=== PATIENT | male | born 1965 | race Caucasian/White ===

== ENCOUNTER 2019-02-17 06:30 | Inpatient (IN) | payer SELFPAY ==
[~2019-02-17] VITALS: Ht 170.2 cm; Wt 75.0 kg
--- OUTSIDE RECORDS SUMMARY | 2019-02-17 06:36 | XMS REPORT | Continuity of Care Document ---
Author Author [facility]. Organization [facility]. Address [address] [place] [address] Phone Unavailable Care Team Providers Care Youth Program Director Name Role Phone Patient States, No PCP Unavailable Unavailable Insurance Providers Payer Name Policy Number Subscriber Name Relationship Self-Pay Self-Pay [employer] Self Advance Directives Directive Response Recorded Date/Time Advance Directives: No 01/05/17 2:25pm Chief Complaint and Reason for Visit Reason for Visit Problems Active Medical Problems Problem Onset Date Recorded Date Status Renal colic Unknown 01/05/17 Active Medications No known medications. Social History Query Response Start Date Stop Date Smoking status: Current every day smoker Hospital Discharge Instructions No hospital discharge instructions. Plan of Care Discharge Date 01/05/17 Disposition 01-HOME, SELF-CARE,ASST LIVING Condition at Discharge Stable Instructions/Education Provided Renal Colic Prescriptions See Medications Section Referrals Luther Lanier - Additional Instructions/Education REST AND PUSH FLUIDS. F/U WITH DR LANIER OR WITH YOUR DOCTOR THIS WEEK. Some of your test results may not be complete prior to your leaving the Emergency Department. The Emergency Department is not authorized to give test results over the phone. Please contact the doctor's office listed on this form for your final results. Follow up with your primary care physician or return to the Emergency Department for worsening or worrisome symptoms. * Emergency Department phone number: [phone] MEDICAL RECORD If you need copies of your X-rays, call [phone]. If you need copies of your medical record, including lab results, a signed authorization for release of records will be required. A telephone call for release of Health Information is not allowed. BILLING Billing can sometimes be confusing and frustrating. To help avoid confusion in the future, please take a moment to acquaint yourself with the billing parties for services. [employer] [facility] [phone] X-rays [facility] Patients will receive bills for services from the appropriate provider. If you have any questions about your [facility] bill, our staff will be happy to assist you. Please call [phone] and ask for the billing department. THANK YOU for choosing [facility] as your emergency care provider. Care Plan and Goals ~~Discharge Care Plan~~ Problem: Blood in urine Goal: Decreased pain, frequency, and bloody urination. Instructions: Drink 6-8 glasses of water or noncarbonated beverages, including cranberry juice, per day. Take medication(s) as prescribed. Follow discharge instructions. Functional Status No functional status results. Allergies, Adverse Reactions, Alerts Allergen Type Severity Reaction Status Last Updated soap Allergy Unknown Active 01/05/17 povidone-iodine Allergy Unknown Active 01/05/17 ketorolac Allergy Unknown Active 01/05/17 Immunizations No Known History of Immunizations. Vital Signs Vital Reading Collection Date/Time Result Blood Pressure 01/05/17 2:25pm 122/78 Blood Pressure Source 01/05/17 2:25pm Sitting Temperature 01/05/17 2:25pm 97.9 F Temperature Source 01/05/17 2:25pm Oral Respiratory Rate 01/05/17 2:25pm 24 Pulse Rate 01/05/17 2:25pm 122 Pulse Location 01/05/17 2:25pm Pulse Oximetry Bedside Pulse Oximetry 01/05/17 2:25pm 95 Height 01/05/17 2:25pm 5 ft 7.01 in Height 01/05/17 2:25pm 170.2 cm Weight 01/05/17 2:25pm 170 lb Weight 01/05/17 2:25pm 77.3 kg Body Mass Index 01/05/17 2:25pm 26.7 kg/m2 Results Laboratory Results Test Name Result Units Flags Reference Collection Date/Time Result Date/Time Comments Urine Collection Type CLEAN CATCH 01/05/17 2:59pm 01/05/17 3:21pm Urine Color Katia 01/05/17 2:59pm 01/05/17 3:57pm Urine Appearance Cloudy 01/05/17 2:59pm 01/05/17 3:57pm Urine Specific Azalea 1.030 1.005-1.035 01/05/17 2:59pm 01/05/17 3:57pm Urine pH 5 5-8 01/05/17 2:59pm 01/05/17 3:57pm Urine Protein 2+ H NEGATIVE 01/05/17 2:59pm 01/05/17 3:57pm Urine Glucose Negative NEGATIVE 01/05/17 2:59pm 01/05/17 3:57pm Urine Ketones Trace H NEGATIVE 01/05/17 2:59pm 01/05/17 3:57pm Urine Bilirubin Negative NEGATIVE 01/05/17 2:59pm 01/05/17 3:57pm Urine Urobilinogen >=4.0 mg/dL H NEGATIVE 01/05/17 2:59pm 01/05/17 3:57pm Urine Nitrate Negative NEGATIVE 01/05/17 2:59pm 01/05/17 3:57pm Urine Blood 3+ H NEGATIVE 01/05/17 2:59pm 01/05/17 3:57pm Urine Leukocyte Esterase Negative NEGATIVE 01/05/17 2:59pm 01/05/17 3:57pm Urine RBC >50 /hpf H 01/05/17 2:59pm 01/05/17 3:57pm Urine Squamous Epithelial Cells 0-2 /hpf 01/05/17 2:59pm 01/05/17 3:57pm White Blood Count 5.1 K/mm3 4.8-10.8 01/05/17 2:57pm 01/05/17 3:25pm Red Blood Count 4.31 M/mm3 4.20-5.60 01/05/17 2:57pm 01/05/17 3:25pm Hemoglobin 13.0 g/dl L 13.5-18.0 01/05/17 2:57pm 01/05/17 3:25pm Hematocrit 38.0 % L 42.0-52.0 01/05/17 2:57pm 01/05/17 3:25pm Mean Corpuscular Volume 88 fl 80.0-100.0 01/05/17 2:57pm 01/05/17 3:25pm Mean Corpuscular Hemoglobin 30 pg 27.0-31.0 01/05/17 2:57pm 01/05/17 3:25pm Mean Corpuscular Hemoglobin Concent 34 g/dl 33.0-37.0 01/05/17 2:57pm 01/05/17 3:25pm Red Cell Distribution Width 14.3 % 11.5-14.5 01/05/17 2:57pm 01/05/17 3:25pm Platelet Count 267 K/mm3 130-400 01/05/17 2:57pm 01/05/17 3:25pm Mean Platelet Volume 8.5 fl 7.4-10.4 01/05/17 2:57pm 01/05/17 3:25pm Granulocytes (%) 53.3 % 42.2-75.2 01/05/17 2:57pm 01/05/17 3:25pm Lymphocytes % 33.6 % 20.0-51.0 01/05/17 2:57pm 01/05/17 3:25pm Monocytes % 9.4 % H 1.7-9.3 01/05/17 2:57pm 01/05/17 3:25pm Eosinophils % 2.7 % 0-4.0 01/05/17 2:57pm 01/05/17 3:25pm Basophils % 0.8 % 0.0-2.0 01/05/17 2:57pm 01/05/17 3:25pm Granulocytes # 2.7 1.4-6.5 01/05/17 2:57pm 01/05/17 3:25pm Lymphocytes # 1.7 1.2-3.4 01/05/17 2:57pm 01/05/17 3:25pm Monocytes # 0.5 0.1-0.6 01/05/17 2:57pm 01/05/17 3:25pm Eosinophils # 0.1 0.0-0.7 01/05/17 2:57pm 01/05/17 3:25pm Basophils # 0.0 0.0-0.2 01/05/17 2:57pm 01/05/17 3:25pm Glucose Level 94 mg/dL 74-106 01/05/17 2:57pm 01/05/17 3:43pm Blood Urea Nitrogen 12 mg/dL 9-01/05/17 2:57pm 01/05/17 3:43pm Creatinine 0.83 mg/dL 0.66-1.25 01/05/17 2:57pm 01/05/17 3:43pm Estimated GFR () 119 01/05/17 2:57pm 01/05/17 3:43pm Estimated GFR (Non- 98 01/05/17 2:57pm 01/05/17 3:43pm eGFR Interpretation: Chronic Kidney Disease=CKD CKD STAGE I > or=90 mL/min/1.73 square meters STAGE II 60 - 89 STAGE III 30 - 59 STAGE IV 15 - 29 STAGE V <15 NOTE: The MDRD Study equation has not been validated for use with the elderly (over 70 years of age), women, patients with serious comorbid conditions, or persons with extremes of body size, muscle mass, or nutritional status. Sodium Level 138 mmol/L 137-145 01/05/17 2:57pm 01/05/17 3:43pm Potassium Level 3.7 mmol/L 3.4-5.0 01/05/17 2:57pm 01/05/17 3:43pm Chloride Level 105 mmol/L 98-107 01/05/17 2:57pm 01/05/17 3:43pm Carbon Dioxide Level 20 mmol/L L -01/05/17 2:57pm 01/05/17 3:43pm Anion Gap 12 mmol/L 7-16 01/05/17 2:57pm 01/05/17 3:43pm Calcium Level 8.5 mg/dL 8.4-10.2 01/05/17 2:57pm 01/05/17 3:43pm Calcium Adjusted for Albumin 8.4 mg/dL 8.4-10.2 01/05/17 2:57pm 01/05/17 3:43pm Serum Total Protein 7.1 gm/dL 6.4-8.2 01/05/17 2:57pm 01/05/17 3:43pm Albumin 4.1 gm/dL 3.5-5.0 01/05/17 2:57pm 01/05/17 3:43pm Total Bilirubin 1.2 mg/dL H 0.0-1.0 01/05/17 2:57pm 01/05/17 3:43pm Aspartate Amino Transf (AST/SGOT) 45 U/L H 15-37 01/05/17 2:57pm 01/05/17 3:43pm Alanine Aminotransferase (ALT/SGPT) 51 U/L 21-72 01/05/17 2:57pm 01/05/17 3:43pm Alkaline Phosphatase 68 U/L 50-136 01/05/17 2:57pm 01/05/17 3:43pm Lipase 98 U/L 23-300 01/05/17 2:57pm 01/05/17 3:43pm C-Reactive Protein < 0.5 mg/dL 0.0-0.9 01/05/17 2:57pm 01/05/17 3:43pm Procedures No Known History of Procedures. Encounters Encounter Location Arrival/Admit Date Discharge/Depart Date Attending Provider Departed Emergency [facility] 01/05/17 2:24pm 01/05/17 6:17pm WALLY SOLER Encounter Diagnosis Onset Date Renal colic
--- OUTSIDE RECORDS SUMMARY | 2019-02-17 06:37 | XMS REPORT | Continuity of Care Document ---
Author Organization Unknown Address Unknown Allergies Active Description Code Type Severity Reaction Onset Reported/Identified Relationship to Patient Clinical Status Yes NO NAME AVAILABLE 73483 DRUG N/A N/A Yes KETOROLAC TROMETHAMINE 52932 DRUG INGREDI High Sob 12/16/2016 12/16/2016 Yes POVIDONE IODINE 54181 DRUG INGREDI Low Rash 12/16/2016 12/16/2016 Yes ketorolac ketorolac Drug Allergy Unknown UNKNOWN 01/25/2017 Yes povidone-iodine povidone-iodine Drug Allergy Unknown UNKNOWN 01/25/2017 Yes soap soap Drug Allergy Unknown UNKNOWN 01/25/2017 Medications Medication Packaging Start Date Stop Date Route Dosage Sig SODIUM CHLORIDE 0.9 % IV BOLUS 12/16/2016 12/17/2016 Intravenous 1000 BOLUS ONDANSETRON HCL 4 MG/2ML IJ SOLN 12/18/2016 Intravenous 4 ONCE SODIUM CHLORIDE 0.9 % IV BOLUS 12/18/2016 12/19/2016 Intravenous 1000 BOLUS DIPHENHYDRAMINE HCL 50 MG/ML IJ SOLN 12/18/2016 Intravenous 25 ONCE ACETAMINOPHEN 325 MG PO TABS 12/25/2016 Oral 650 ONCE SODIUM CHLORIDE 0.9 % IV BOLUS 12/25/2016 12/25/2016 Intravenous 2700 BOLUS ONDANSETRON HCL 4 MG/2ML IJ SOLN 12/25/2016 Intravenous 4 ONCE VANCOMYCIN HCL IN DEXTROSE 1-5 GM/200ML-% IV SOLN 12/25/2016 Intravenous 1000 ONCE PREDNISONE 20 MG PO TABS 12/25/2016 12/30/2016 Oral 40 DAILY CEFTRIAXONE SODIUM-DEXTROSE 1-3.74 GM-% IV SOLR 12/25/2016 Intravenous 1 EVERY 24 HOURS SODIUM CHLORIDE 0.9 % IV SOLN 12/25/2016 Intravenous 75 CONTINUOUS DIPHENHYDRAMINE HCL 25 MG PO CAPS 12/25/2016 Oral 25 EVERY 6 HOURS FAMOTIDINE 20 MG PO TABS 12/25/2016 Oral 20 2 TIMES DAILY ACETAMINOPHEN 325 MG PO TABS 12/26/2016 Oral 650 EVERY 6 HOURS PRN FOLIC ACID 1 MG PO TABS 12/26/2016 Oral 1 DAILY VITAMIN B-1 100 MG PO TABS 12/26/2016 Oral 100 DAILY CEFAZOLIN SODIUM-DEXTROSE 1-4 GM-% IV SOLR 12/26/2016 Intravenous 1 EVERY 8 HOURS ENOXAPARIN SODIUM 40 MG/0.4ML SC SOLN 12/26/2016 Subcutaneous 40 BEDTIME NICOTINE POLACRILEX 2 MG MT LOZG 12/28/2016 Oral 2 EVERY 2 HOURS PRN ERYTHROMYCIN 5 MG/GM OP OINT 12/28/2016 Left Eye EVERY 6 HOURS SCHEDULED DIPHENHYDRAMINE HCL 25 MG PO CAPS 12/28/2016 Oral 25 2 TIMES DAILY Problems Date Dx Coded Attending Type Code Diagnosis Diagnosed By 12/16/2016 OPHELIA WOOD V 3 Alcohol Problem NINA OPHELIA 12/16/2016 OPHELIA WOOD V F10.120 Alcohol abuse with intoxication, uncomplicated (HCC) NINA OPHELIA 12/18/2016 NINAOPHELIA V 650025 Abdominal Pain NINA OPHELIA 12/18/2016 OPHELIA WOOD V R10.9 Unspecified abdominal pain NINA OPHELIA 12/18/2016 OPHELIA WOOD V R31.9 Hematuria, unspecified NINA [place] 12/30/2016 ALHAFEZ, CHEKO V 634648 Facial Swelling ALHAFEZ, CHEKO 12/30/2016 ALHAFEZ, CHEKO P A46 Erysipelas ALHAFEZ, CHEKO 12/30/2016 ALHAFEZ, CHEKO V L02.01 Cutaneous abscess of face ALHAFEZ, CHEKO 12/30/2016 ALHAFEZ, CHEKO V L03.211 Cellulitis of face ALHAFEZ, CHEKO 01/23/2017 Mitch Donaldson 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 01/23/2017 Mitch Donaldson F10.239 ALCOHOL DEPENDENCE WITH WITHDRAWAL, UNSPECIFIED 01/23/2017 Mitch Donaldson F17.210 NICOTINE DEPENDENCE, CIGARETTES, UNCOMPLICATED 01/23/2017 Mitch Donaldson Z86.73 PRSNL HX OF TIA (TIA), 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 01/23/2017 Mitch Donaldson Z95.0 PRESENCE OF CARDIAC PACEMAKER 01/27/2017 Lesly Shukla, Mike Lopez F17.210 NICOTINE DEPENDENCE, CIGARETTES, UNCOMPLICATED 01/27/2017 Lesly Coburn., Mike Lopez F41.9 ANXIETY DISORDER, UNSPECIFIED 01/27/2017 Lesly Coburn., Mike Miranda W T18.2XXA FOREIGN BODY IN STOMACH, INITIAL ENCOUNTER 01/27/2017 Lesly Shukla, Mike Ruth John X83.8XXA INTENTIONAL SELF-HARM BY OTHER SPECIFIED MEANS, IN 01/27/2017 Lesly Shukla, Mike Miranda W Y92.[address] OR NOT APPLICABLE 01/27/2017 Lesly Shukla, Mike Lopez Y93.9 ACTIVITY, UNSPECIFIED 01/27/2017 Lesly Shukla, Mike Lopez Z86.73 PRSNL HX OF TIA (TIA), 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 01/27/2017 Lesly Shukla, Mike Lopez Z95.0 PRESENCE OF CARDIAC PACEMAKER 01/27/2017 Lesly Shukla, Mike Lopez F17.210 NICOTINE DEPENDENCE, CIGARETTES, UNCOMPLICATED 01/27/2017 Lesly Shukla, Mike Lopez F41.9 ANXIETY DISORDER, UNSPECIFIED 01/27/2017 Lesly Shukla, Mike M John T18.2XXA FOREIGN BODY IN STOMACH, INITIAL ENCOUNTER 01/27/2017 Lesly Shukla, Mike Ruth Jonh X83.8XXA INTENTIONAL SELF-HARM BY OTHER SPECIFIED MEANS, IN 01/27/2017 Lesly Shukla, Mike Lopez Y92.[address] OR NOT APPLICABLE 01/27/2017 Lesly Shukla, Mike Lopez Y93.9 ACTIVITY, UNSPECIFIED 01/27/2017 Lesly Shukla, Mike Lopez Z86.73 PRSNL HX OF TIA (TIA), 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 01/27/2017 Lesly Shukla, Mike M W Z95.0 PRESENCE OF CARDIAC PACEMAKER 01/27/2017 Lesly Shukla, Mike Lopez F17.210 NICOTINE DEPENDENCE, CIGARETTES, UNCOMPLICATED 01/27/2017 Lesly Shukla, Mike Lopez F41.9 ANXIETY DISORDER, UNSPECIFIED 01/27/2017 Lesly Shukla, Mike Ruth W T18.2XXA FOREIGN BODY IN STOMACH, INITIAL ENCOUNTER 01/27/2017 Lesly Shukla, Mike Lopez X83.8XXA INTENTIONAL SELF-HARM BY OTHER SPECIFIED MEANS, IN 01/27/2017 Lesly Shukla, Mike Lopez Y92.[address] OR NOT APPLICABLE 01/27/2017 Lesly Shukla, Mike Lopez Y93.9 ACTIVITY, UNSPECIFIED 01/27/2017 Lesly Shukla, Mike Lopez Z86.73 PRSNL HX OF TIA (TIA), 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 01/27/2017 Lesly Shukla, Mike Lopez Z95.0 PRESENCE OF CARDIAC PACEMAKER 01/28/2017 Lesly Shukla, Mike Lopez F17.210 NICOTINE DEPENDENCE, CIGARETTES, UNCOMPLICATED 01/28/2017 Lesly Shukla, Mike Lopez F41.9 ANXIETY DISORDER, UNSPECIFIED 01/28/2017 Lesly Shukla, Mike Lopez T18.2XXA FOREIGN BODY IN STOMACH, INITIAL ENCOUNTER 01/28/2017 Lesly Shukla, Mike Lopez X83.8XXA INTENTIONAL SELF-HARM BY OTHER SPECIFIED MEANS, IN 01/28/2017 Lesly Shukla, Mike Lopez Y92.[address] OR NOT APPLICABLE 01/28/2017 Lesly Shukla, Mike Lopez Y93.9 ACTIVITY, UNSPECIFIED 01/28/2017 Lesly Shukla, Mike Lopez Z86.73 PRSNL HX OF TIA (TIA), 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 Y92.[address] OR NOT APPLICABLE 01/30/2017 Mike Grace M.D. Y93.9 ACTIVITY, UNSPECIFIED 01/30/2017 Mike Grace M.D. 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 Z95.0 PRESENCE OF CARDIAC PACEMAKER Procedures Code Description Performed By Performed On [id number] EXTIRPATION OF MATTER FROM STOMACH, OPEN APPROACH 01/25/2017 [id number] INSPECTION OF UPPER INTESTINAL TRACT, ENDO 01/25/2017 Results Test Result Range CBC WITH AUTO DIFFERENTIAL - 12/16/16 14:13 BASOPHILS RELATIVE PERCENT 0.5 % 0.0-2.5 EOSINOPHILS RELATIVE PERCENT 0.5 % <=5.0 HEMATOCRIT 38.3 % 38.8-50.0 HEMOGLOBIN 13.1 g/dL 13.5-17.5 LYMPHOCYTES RELATIVE PERCENT 26.6 % 22.0-49.0 MEAN CORPUSCULAR HEMOGLOBIN 30.2 pg 26.0-34.0 MEAN CORPUSCULAR HEMOGLOBIN CONC 34.2 g/dL 31.0-37.0 MEAN CORPUSCULAR VOLUME 88.2 fL 81.2-95.1 MONOCYTES RELATIVE PERCENT 13.0 % 2.0-9.0 NEUTROPHILS RELATIVE PERCENT 59.4 % 40.0-75.0 NUCLEATED RED BLOOD CELLS 0 /100 <=0 PLATELET COUNT 196 10E9/L 150-450 RED BLOOD CELL COUNT 4.34 10E12/L 4.32-5.72 RED CELL DISTRIBUTION WIDTH 14.0 % 11.8-15.6 [id number] 6.6 10E9/L 3.5-10.5 2035817 1.76 10E9/L 0.90-2.90 4862559 0.86 10E9/L 0.30-0.90 5728959 0.03 10E9/L 0.05-0.50 3978985 3.93 10E9/L 1.70-7.00 2182734 0.03 10E9/L 0.00-0.30 [id number] 0 % LIPASE - 12/16/16 14:13 LIPASE 25 U/L 6-51 URINALYSIS, REFLEX CULTURE IF NEEDED - 12/18/16 12:15 APPEARANCE Hazy BILIRUBIN UA Negative Negative COLOR Light-Brown GLUCOSE UA Negative Negative HEMOGLOBIN UA 3+ Negative LEUKOCYTE ESTERASE UA Negative Negative MUCOUS Rare NITRATE UA Negative Negative PH UA 6.5 5.0-8.0 PROTEIN UA Negative Negative RBC UA >100 /HPF 0-3 SPECIFIC GRAVITY UA 1.013 1.003-1.030 SQUAMOUS EPITHELIAL 2+ UROBILINOGEN UA 4.0 mg/dL 0.2 WBC UA 4-10 /HPF 0-3 [id number] Negative Negative CBC WITH AUTO DIFFERENTIAL - 12/18/16 12:50 BASOPHILS RELATIVE PERCENT 0.2 % 0.0-2.5 EOSINOPHILS RELATIVE PERCENT 3.8 % <=5.0 HEMATOCRIT 37.0 % 38.8-50.0 HEMOGLOBIN 12.3 g/dL 13.5-17.5 LYMPHOCYTES RELATIVE PERCENT 24.1 % 22.0-49.0 MEAN CORPUSCULAR HEMOGLOBIN 30.1 pg 26.0-34.0 MEAN CORPUSCULAR HEMOGLOBIN CONC 33.2 g/dL 31.0-37.0 MEAN CORPUSCULAR VOLUME 90.7 fL 81.2-95.1 MONOCYTES RELATIVE PERCENT 7.6 % 2.0-9.0 NEUTROPHILS RELATIVE PERCENT 64.3 % 40.0-75.0 NUCLEATED RED BLOOD CELLS 0 /100 <=0 PLATELET COUNT 178 10E9/L 150-450 RED BLOOD CELL COUNT 4.08 10E12/L 4.32-5.72 RED CELL DISTRIBUTION WIDTH 14.1 % 11.8-15.6 1605785 4.5 10E9/L 3.5-10.5 5842274 1.08 10E9/L 0.90-2.90 8233111 0.34 10E9/L 0.30-0.90 1944984 0.17 10E9/L 0.05-0.50 8671001 2.89 10E9/L 1.70-7.00 4634557 0.01 10E9/L 0.00-0.30 1285040 0 % COMPREHENSIVE METABOLIC PANEL - 12/18/16 12:50 ALBUMIN 3.6 g/dL 3.4-4.8 ALKALINE PHOSPHATASE 47 U/L 29-122 ALT 50 U/L 10-46 ANION GAP 4 AST 43 U/L 16-37 BILIRUBIN,TOTAL 0.4 mg/dL 0.2-1.3 BUN BLOOD 16 mg/dL 6-20 CALCIUM 8.4 mg/dL 8.7-10.5 CHLORIDE 108 mmol/L 99-111 CO2 26 mmol/L 20-36 CREATININE 0.62 mg/dL 0.60-1.20 EGFR > mL/min >59 GLUCOSE 96 mg/dL 74-106 POTASSIUM 4.0 mmol/L 3.6-4.9 PROTEIN TOTAL 6.2 g/dL 6.4-8.3 SODIUM 138 mmol/L 136-145 EXTRA LIGHT BLUE TOP - 12/18/16 12:50 1324 Extra tube in lab EXTRA LIGHT GREEN TOP - 12/18/16 12:50 1324 Extra tube in lab B-TYPE NATRIURETIC PEPTIDE - 12/25/16 09:10 B-TYPE NATRIURETIC PEPTIDE 6 pg/mL <=100 LACTIC ACID, PLASMA - 12/25/16 09:10 LACTIC ACID 2.31 mmol/L 0.50-2.00 CK - 12/25/16 09:10 CPK 243 U/L 38-174 PROCALCITONIN - 12/25/16 09:10 PROCALCITONIN < ng/ml <=0.09 URINALYSIS, REFLEX CULTURE IF NEEDED - 12/25/16 09:45 APPEARANCE Clear [none] BILIRUBIN UA Negative Negative COLOR Yellow [none] GLUCOSE UA Negative Negative HEMOGLOBIN UA Negative Negative LEUKOCYTE ESTERASE UA Negative Negative MUCOUS Rare FEW NITRATE UA Negative Negative PH UA 6.0 5.0-8.0 PROTEIN UA Trace Negative RBC UA 0-3 0-3 SPECIFIC GRAVITY UA 1.021 1.003-1.030 SQUAMOUS EPITHELIAL 1+ 1+ UROBILINOGEN UA >12.0 EU 0.2 WBC UA 0-3 /HPF 0-3 [id number] Negative Negative DRUG SCREEN (8) MEDICAL - 12/25/16 09:45 AMPHETAMINE Negative Cutoff 1000 ng/mL Negative BARBITURATES Positive Cutoff 200 ng/mL Negative BENZODIAZEPINES Negative Cutoff 200 ng/mL Negative COCAINE (METABOLITE) Negative Cutoff 300 ng/mL Negative MDMA URINE Negative Cutoff 500 ng/mL Negative OPIATES Negative Cutoff 300 ng/mL Negative PCP Negative Cutoff 25 ng/mL Negative PH UA 7.0 5.0-8.0 SPECIFIC GRAVITY UA 1.024 1.003-1.030 THC Negative Cutoff 50 ng/mL Negative [id number] Chain of custody not received BLOOD CULTURE - 12/25/16 10:10 [id number] No Growth after 5 days incubation BLOOD CULTURE - 12/25/16 10:15 [id number] No Growth after 5 days incubation LACTIC ACID, PLASMA - 12/25/16 13:05 LACTIC ACID 1.05 mmol/L 0.50-2.00 CK - 12/26/16 07:18 CPK 136 U/L 38-174 BASIC METABOLIC PANEL - 12/27/16 08:13 ANION GAP 7 BUN BLOOD 12 mg/dL 6-20 CALCIUM 8.4 mg/dL 8.7-10.5 CHLORIDE 110 mmol/L 99-111 CO2 23 mmol/L 20-36 CREATININE 0.62 mg/dL 0.60-1.20 EGFR > mL/min >59 GLUCOSE 75 mg/dL 74-106 POTASSIUM 4.1 mmol/L 3.6-4.9 SODIUM 140 mmol/L 136-145 BASIC METABOLIC PANEL - 12/28/16 07:30 ANION GAP 3 BUN BLOOD 11 mg/dL 6-20 CALCIUM 8.3 mg/dL 8.7-10.5 CHLORIDE 108 mmol/L 99-111 CO2 28 mmol/L 20-36 CREATININE 0.71 mg/dL 0.60-1.20 EGFR > mL/min >59 GLUCOSE 75 mg/dL 74-106 POTASSIUM 3.9 mmol/L 3.6-4.9 SODIUM 139 mmol/L 136-145 BASIC METABOLIC PANEL - 12/29/16 06:58 ANION GAP 4 BUN BLOOD 13 mg/dL 6-20 CALCIUM 8.7 mg/dL 8.7-10.5 CHLORIDE 108 mmol/L 99-111 CO2 27 mmol/L 20-36 CREATININE 0.73 mg/dL 0.60-1.20 EGFR > mL/min >59 GLUCOSE 73 mg/dL 74-106 POTASSIUM 4.4 mmol/L 3.6-4.9 SODIUM 139 mmol/L 136-145 BASIC METABOLIC PANEL - 12/30/16 06:25 ANION GAP 4 BUN BLOOD 13 mg/dL 6-20 CALCIUM 8.7 mg/dL 8.7-10.5 CHLORIDE 106 mmol/L 99-111 CO2 29 mmol/L 20-36 CREATININE 0.76 mg/dL 0.60-1.20 EGFR > mL/min >59 GLUCOSE 73 mg/dL 74-106 POTASSIUM 4.1 mmol/L 3.6-4.9 SODIUM 139 mmol/L 136-145 CBC WITH DIFFERENTIAL - 01/23/17 00:40 WHITE BLOOD CELL 6.4 k/cumm 4.8-10.8 RED BLOOD CELL 4.25 m/cumm 4.7-6.4 HEMOGLOBIN 12.9 gm/dL 14.0-18.0 HEMATOCRIT 38.7 % 42-52 MEAN CELL VOLUME 91.1 fl 80-94 MEAN CELL HGB 30.4 pg 27-31 MEAN CELL HGB CONCENTRATION 33.3 g/dL 33.0-37.0 RED CELL DISTRIBUTION WIDTH 15.2 % 11.5-14.5 PLATELET COUNT 264 k/cumm 130-400 NEUTROPHIL % 68.2 % 43-65 LYMPHOCYTE % 20.1 % 20-45 MONOCYTE % 8.5 % 5-12 EOSINOPHIL % 2.7 % 0.9-2.9 BASOPHIL % 0.5 % 0.25-1.0 ABSOLUTE NEUTROPHIL # 4.35 k/cumm 2.2-4.8 LYMPHOCYTE # 1.3 k/cumm 1.3-2.9 MONOCYTE # 0.5 k/cumm 0.31-0.83 EOSINOPHIL # 0.2 k/cumm 0.05-0.22 BASOPHIL # 0.0 k/cumm 0.02-0.06 DIFFERENTIAL/MORPHOLOGY AUTO DIFF Performing Location: METABOLIC PANEL, COMPREHN - 01/23/17 00:40 Performing Location: SODIUM 146 mmol/L 135-145 POTASSIUM 4.1 mmol/L 3.6-5.2 CHLORIDE 109 mmol/L 100-108 CARBON DIOXIDE 26.9 mmol/L 21.0-32.0 ANION GAP 14 mmol/L 10-20 GLUCOSE 138 mg/dL 70-110 BLOOD UREA NITROGEN 12 mg/dL 7-22 CREATININE 1.0 mg/dL 0.8-1.3 BUN/CREATININE RATIO 12.0 GLOMERULAR FILTRATION RATE 84.07 CALCIUM 9.2 mg/dL 8.7-10.5 TOTAL PROTEIN 7.2 gm/dL 6.0-8.0 ALBUMIN 3.6 gm/dL 3.5-5.0 GLOBULIN 3.6 gm/dL 2.1-3.5 ALBUMIN/GLOBULIN RATIO 1.0 1.1-2.2 BILIRUBIN TOTAL 0.4 mg/dL 0.0-1.0 SGOT/AST 48 UNIT/L 15-37 SGPT/ALT 54 UNIT/L 12-78 ALKALINE PHOSPHATASE TOTAL 66 UNIT/L 46-116 ALCOHOL (ETHANOL) SERUM - 01/23/17 00:40 Performing Location: ALCOHOL (ETHANOL) SERUM% 0 % 0.00 URINALYSIS, ROUTINE - 01/23/17 01:23 Performing Location: UA PROTEIN DIPSTICK NEGATIVE mg/dL NEGATIVE UA GLUCOSE DIPSTICK NEGATIVE mg/dL NEGATIVE UA KETONE DIPSTICK TRACE mg/dL UA UROBILINOGEN DIPSTICK 2.0 EU/dL 0.2 - 1 UA BILIRUBIN DIPSTICK NEGATIVE mg/dL NEGATIVE UA BLOOD DIPSTICK NEGATIVE /uL NEGATIVE UA COMMENT C/S NOT INDICATED URINE SAMPLE VOLUME 10 mL UA MICROSCOPIC SPUN URINE UA RBC 2-4 rbc/hpf NEGATIVE UA WBC NEGATIVE wbc/hpf NEGATIVE UA BACTERIA TRACE NEGATIVE UA COLOR STRAW UA APPEARANCE CLEAR CLEAR UA SPECIFIC GRAVITY 1.020 1.005-1.030 UA PH 6.5 5.0-9.0 UA LEUKOCYTE ESTERASE DIPSTICK NEGATIVE u/L NEGATIVE UA NITRITE DIPSTICK NEGATIVE NEGATIVE UA EPITHELIAL CELLS RARE epi/hpf 0-RARE UA AMORPHOUS SEDIMENT 3+ 0-4+ UA MUCUS 2+ 0-1+ UR DRUG SCREEN - 01/23/17 01:23 Performing Location: UR AMPHETAMINES SCREEN NEG (< 1000 ng/mL) NEGATIVE UR METHAMPHETAMINES SCREEN NEG (< 1000 ng/mL) NEGATIVE UR BARBITURATE SCREEN NEG (< 300 ng/mL) NEGATIVE UR PHENCYCLIDINE (PCP) SCREEN NEG (< 25 ng/mL) NEGATIVE UR CANNABINOIDS (THC) SCREEN POS (> 50 ng/mL) NEGATIVE UR COCAINE METABOLITE SCREEN NEG (< 300 ng/mL) NEGATIVE UR METHADONE SCREEN NEG (< 300 ng/mL) NEGATIVE UR OPIATES SCREEN NEG (< 300 ng/mL) NEGATIVE UR BENZODIAZEPINE SCREEN NEG (< 300 ng/mL) NEGATIVE UR TRICYCLIC ANTIDEPRESS SCRN NEG (< 1000 ng/mL) NEGATIVE UR ACTMN/PARACETAMOL SCREEN NEG (<5 mcg/mL) NEGATIVE DRUGS OF ABUSE SCREEN COMMENT URINALYSIS, ROUTINE - 01/25/17 00:05 Performing Location: UA PROTEIN DIPSTICK NEGATIVE mg/dL NEGATIVE UA GLUCOSE DIPSTICK NEGATIVE mg/dL NEGATIVE UA KETONE DIPSTICK NEGATIVE mg/dL UA UROBILINOGEN DIPSTICK 0.2 EU/dL 0.2 - 1 UA BILIRUBIN DIPSTICK NEGATIVE mg/dL NEGATIVE UA BLOOD DIPSTICK 3+ /uL NEGATIVE URINE SAMPLE VOLUME 10 mL UA MICROSCOPIC SPUN URINE UA RBC PACKED FIELD rbc/hpf NEGATIVE UA WBC 5-10 wbc/hpf NEGATIVE UA BACTERIA NEGATIVE NEGATIVE UA COLOR STRAW UA APPEARANCE CLOUDY CLEAR UA SPECIFIC GRAVITY 1.010 1.005-1.030 UA PH 6.5 5.0-9.0 UA LEUKOCYTE ESTERASE DIPSTICK NEGATIVE u/L NEGATIVE UA NITRITE DIPSTICK NEGATIVE NEGATIVE UA EPITHELIAL CELLS FEW epi/hpf 0-RARE UR DRUG SCREEN - 01/25/17 00:05 Performing Location: UR AMPHETAMINES SCREEN NEG (< 1000 ng/mL) NEGATIVE UR METHAMPHETAMINES SCREEN NEG (< 1000 ng/mL) NEGATIVE UR BARBITURATE SCREEN NEG (< 300 ng/mL) NEGATIVE UR PHENCYCLIDINE (PCP) SCREEN NEG (< 25 ng/mL) NEGATIVE UR CANNABINOIDS (THC) SCREEN NEG (< 50 ng/mL) NEGATIVE UR COCAINE METABOLITE SCREEN NEG (< 300 ng/mL) NEGATIVE UR METHADONE SCREEN NEG (< 300 ng/mL) NEGATIVE UR OPIATES SCREEN NEG (< 300 ng/mL) NEGATIVE UR BENZODIAZEPINE SCREEN POS (> 300 ng/mL) NEGATIVE UR TRICYCLIC ANTIDEPRESS SCRN NEG (< 1000 ng/mL) NEGATIVE UR ACTMN/PARACETAMOL SCREEN NEG (<5 mcg/mL) NEGATIVE DRUGS OF ABUSE SCREEN COMMENT CBC WITH DIFFERENTIAL - 01/25/17 00:10 WHITE BLOOD CELL 4.4 k/cumm 4.8-10.8 RED BLOOD CELL 4.24 m/cumm 4.7-6.4 HEMOGLOBIN 12.7 gm/dL 14.0-18.0 HEMATOCRIT 38.9 % 42-52 MEAN CELL VOLUME 91.7 fl 80-94 MEAN CELL HGB 30.0 pg 27-31 MEAN CELL HGB CONCENTRATION 32.6 g/dL 33.0-37.0 RED CELL DISTRIBUTION WIDTH 15.1 % 11.5-14.5 PLATELET COUNT 231 k/cumm 130-400 NEUTROPHIL % 52.2 % 43-65 LYMPHOCYTE % 32.6 % 20-45 MONOCYTE % 9.7 % 5-12 EOSINOPHIL % 5.0 % 0.9-2.9 BASOPHIL % 0.5 % 0.25-1.0 ABSOLUTE NEUTROPHIL # 2.31 k/cumm 2.2-4.8 LYMPHOCYTE # 1.4 k/cumm 1.3-2.9 MONOCYTE # 0.4 k/cumm 0.31-0.83 EOSINOPHIL # 0.2 k/cumm 0.05-0.22 BASOPHIL # 0.0 k/cumm 0.02-0.06 DIFFERENTIAL/MORPHOLOGY AUTO DIFF Performing Location: PROTHROMBIN TIME/INR - 01/25/17 00:10 Performing Location: PROTHROMBIN TIME 9.5 9.2-11.2 INTERNATIONAL NORMAL RATIO 0.9 PARTIAL THROMBOPLASTIN TIME - 01/25/17 00:10 Performing Location: PARTIAL THROMBOPLASTIN TIME 19.4 21.3-31.5 METABOLIC PANEL, COMPREHN - 01/25/17 00:10 Performing Location: SODIUM 142 mmol/L 135-145 POTASSIUM 3.9 mmol/L 3.6-5.2 CHLORIDE 105 mmol/L 100-108 CARBON DIOXIDE 23.6 mmol/L 21.0-32.0 ANION GAP 17 mmol/L 10-20 GLUCOSE 95 mg/dL 70-110 BLOOD UREA NITROGEN 9 mg/dL 7-22 CREATININE 1.0 mg/dL 0.8-1.3 BUN/CREATININE RATIO 9.0 GLOMERULAR FILTRATION RATE 84.07 CALCIUM 8.5 mg/dL 8.7-10.5 TOTAL PROTEIN 7.1 gm/dL 6.0-8.0 ALBUMIN 3.5 gm/dL 3.5-5.0 GLOBULIN 3.6 gm/dL 2.1-3.5 ALBUMIN/GLOBULIN RATIO 1.0 1.1-2.2 BILIRUBIN TOTAL 0.2 mg/dL 0.0-1.0 SGOT/AST 39 UNIT/L 15-37 SGPT/ALT 56 UNIT/L 12-78 ALKALINE PHOSPHATASE TOTAL 57 UNIT/L 46-116 ALCOHOL (ETHANOL) SERUM - 01/25/17 00:10 Performing Location: ALCOHOL (ETHANOL) SERUM% 0 % 0.00 CBC WITH DIFFERENTIAL - 01/25/17 04:10 WHITE BLOOD CELL 3.9 k/cumm 4.8-10.8 RED BLOOD CELL 4.23 m/cumm 4.7-6.4 HEMOGLOBIN 12.7 gm/dL 14.0-18.0 HEMATOCRIT 38.7 % 42-52 MEAN CELL VOLUME 91.5 fl 80-94 MEAN CELL HGB 30.0 pg 27-31 MEAN CELL HGB CONCENTRATION 32.8 g/dL 33.0-37.0 RED CELL DISTRIBUTION WIDTH 14.9 % 11.5-14.5 PLATELET COUNT 216 k/cumm 130-400 NEUTROPHIL % 50.1 % 43-65 LYMPHOCYTE % 33.4 % 20-45 MONOCYTE % 11.2 % 5-12 EOSINOPHIL % 4.8 % 0.9-2.9 BASOPHIL % 0.5 % 0.25-1.0 ABSOLUTE NEUTROPHIL # 1.96 k/cumm 2.2-4.8 LYMPHOCYTE # 1.3 k/cumm 1.3-2.9 MONOCYTE # 0.4 k/cumm 0.31-0.83 EOSINOPHIL # 0.2 k/cumm 0.05-0.22 BASOPHIL # 0.0 k/cumm 0.02-0.06 DIFFERENTIAL/MORPHOLOGY AUTO DIFF Performing Location: METABOLIC PANEL, COMPREH - 01/25/17 04:10 Performing Location: SODIUM 141 mmol/L 135-145 POTASSIUM 3.6 mmol/L 3.6-5.2 CHLORIDE 108 mmol/L 100-108 CARBON DIOXIDE 22.9 mmol/L 21.0-32.0 ANION GAP 14 mmol/L 10-20 GLUCOSE 95 mg/dL 70-110 BLOOD UREA NITROGEN 9 mg/dL 7-22 CREATININE 0.8 mg/dL 0.8-1.3 BUN/CREATININE RATIO 11.3 GLOMERULAR FILTRATION RATE 108.47 CALCIUM 8.0 mg/dL 8.7-10.5 TOTAL PROTEIN 6.5 gm/dL 6.0-8.0 ALBUMIN 3.2 gm/dL 3.5-5.0 GLOBULIN 3.3 gm/dL 2.1-3.5 ALBUMIN/GLOBULIN RATIO 1.0 1.1-2.2 BILIRUBIN TOTAL 0.2 mg/dL 0.0-1.0 SGOT/AST 37 UNIT/L 15-37 SGPT/ALT 50 UNIT/L 12-78 ALKALINE PHOSPHATASE TOTAL 49 UNIT/L 46-116 ESTIMATED CREATINE CLEARANCE 88 Encounters ACCT No. Visit Date/Time Discharge Status Pt. Type Provider Facility Loc./Unit Complaint [id number] 12/25/2016 07:54:47 12/30/2016 12:00:00 DIS Inpatient CHEKO GRAY [address] [id number] 12/18/2016 13:06:06 12/18/2016 17:38:00 [id number] 13:51:10 12/16/2016 16:03:00 DIS Emergency [place] [facility] [id number] 12/31/2016 10:57:26 Document Registration [id number] 12/16/2016 14:37:18 Document Registration [id number] 01/25/2017 00:32:00 01/30/2017 20:45:00 DIS Inpatient Mike Grace M.D. [facility] [place] [id number] 01/23/2017 00:21:00 01/23/2017 02:53:00 DIS Emergency Mitch Donaldson [facility] FERNANDO
[2019-02-17] MEDS ORDERED: PANTOPRAZOLE 40 MG (PROTONIX) VIAL IV ONE (07:00)
[2019-02-17] MEDS ORDERED: LORazepam INJ 2 MG/ML (ATIVAN) VIAL IVP ONE ×2 (07:00→10:30)
[2019-02-17] MEDS ORDERED: FOLIC ACID 5MG/ML 10 ML IV ONE (07:00)
[2019-02-17] MEDS ORDERED: NS IV 1000 ML 1,000 ML IV SCH ×2 (07:00→10:00)
[2019-02-17] MEDS ORDERED: THIAMINE 100 MG/ML 2 ML (VITAMIN B-1) VIAL IV ONE (07:00)
--- NOTE | 2019-02-17 07:21 | ED Psychosocial ---
General Chief Complaint: Substance Abuse Stated Complaint: ALCOHOL WITHDRAWL Nursing Triage Note: PT. STATED HE CAME HERE FOR ASSISTANCE WITH HIS ALCOHOL ABUSE. HE STATED THE LAST TIME HE DRANK WAS YESTERDAY. PT. SMELLS OF ETOH. 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 HE REPORTED HE HAS A MASS ON HIS KIDNEY, COPD, A PACE MAKER AND HAS HAD SURGERY FOR A BOWEL BLOCKAGE. PT. SPEECH IS SLURRED AND GARBLED. Source: patient Exam Limitations: intoxication History of Present Illness Date Seen by Provider: Feb 17, 2019 Time Seen by Provider: 06:31 Initial Comments 53-year-old male presenting with complaints of withdrawing from alcohol. He states that he has seizures when he withdraws from alcohol. He also claims that his last drink was yesterday. He also claims the last time he tried to stop drinking was yesterday. He thinks he was admitted in a [facility] in [place] previously for alcohol withdrawal and that the last time was about a month ago. He reports that he is hitchhiking and decided this morning that he did not want to continue drinking. He also says that he is having epigastric pain. He denies any nausea or vomiting. He denies having any diarrhea. He denies using any drugs and states he was only drinking alcohol. He cannot tell me exactly how much or what he was drinking. Allergies and Home Medications Allergies Coded Allergies: ketorolac (Verified Allergy, Intermediate, Hives, 02/17/19) povidone-iodine (Verified Allergy, Intermediate, Hives, 02/17/19) soap (Verified Allergy, Intermediate, Hives, 02/17/19) Patient Home Medication List Home Medication List Reviewed: Yes Review of Systems Constitutional: No chills, No fever EENTM: no symptoms reported Respiratory: No cough, No short of breath Cardiovascular: No chest pain Gastrointestinal: see HPI Genitourinary: no symptoms reported Musculoskeletal: no symptoms reported Skin: no symptoms reported Psychiatric/Neurological: Tremors (feels like he could have a seizure) Past Utchvii-Rxwmub-Vfentk Hx Past Med/Social Hx: Reviewed Nursing Past Med/Soc Hx Patient Social History Alcohol Use: Regular Use Recent Foreign Travel: No Contact w/Someone Who Travel: No Recent Infectious Disease Expo: No Past Medical History Abdominal ("bowel blockage") Respiratory: Yes COPD Genitourinary: Yes (claims to have mass on his kidney) Psychosocial: Yes (alcoholism) Physical Exam Vital Signs - First Documented 02/17/19 06:45 Temp 97.0 Pulse 96 Resp 12 B/P (MAP) 110/72 (85) Pulse Ox 96 O2 Delivery Room Air Capillary Refill : Less Than 3 Seconds Height, Weight, BMI Height: 5'7.00" Weight: 165lbs. oz. 74.365700vf; BMI Method:Stated General Appearance: mild distress, other (appears intoxicated, smells of alcohol and is disheveled with poor hygiene) HEENT: PERRL/EOMI, pharynx normal Neck: supple, normal inspection Respiratory: chest non-tender, lungs clear, normal breath sounds Cardiovascular: normal peripheral pulses, regular rate, rhythm Peripheral Pulses: 2+ Radial Pulses (R), 2+ Radial Pulses (L) Gastrointestinal: normal bowel sounds, soft, no pulsatile mass, tenderness (epigastric tenderness. 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, alert, oriented x 3 Appearance/Memory: disheveled, impaired recent memory (having trouble remembering recent admit for alcohol withdrawal) Behavior/Eye Contact: cooperative Skin: normal color, warm/dry, tattoos/piercings, other (midline abdominal scar from old surgery) Progress/Results/Core Measures Results/Orders Lab Results Laboratory Tests Test 02/17/19 07:00 02/17/19 10:21 Range/Units White Blood Count 5.2 4.3-11.0 10^3/uL Red Blood Count 4.82 4.35-5.85 10^6/uL Hemoglobin 14.7 13.3-17.7 G/DL Hematocrit 44 40-54 % Mean Corpuscular Volume 92 80-99 FL Mean Corpuscular Hemoglobin 30 25-34 PG Mean Corpuscular Hemoglobin Concent 33 32-36 G/DL Red Cell Distribution Width 13.7 10.0-14.5 % Platelet Count 242 130-400 10^3/uL Mean Platelet Volume 8.7 7.4-10.4 FL Neutrophils (%) (Auto) 67 42-75 % Lymphocytes (%) (Auto) 24 12-44 % Monocytes (%) (Auto) 6 0-12 % Eosinophils (%) (Auto) 2 0-10 % Basophils (%) (Auto) 1 0-10 % Neutrophils # (Auto) 3.5 1.8-7.8 X 10^3 Lymphocytes # (Auto) 1.2 1.0-4.0 X 10^3 Monocytes # (Auto) 0.3 0.0-1.0 X 10^3 Eosinophils # (Auto) 0.1 0.0-0.3 10^3/uL Basophils # (Auto) 0.0 0.0-0.1 10^3/uL Sodium Level 146 H 135-145 MMOL/L Potassium Level 3.8 3.6-5.0 MMOL/L Chloride Level 107 98-107 MMOL/L Carbon Dioxide Level 24 21-32 MMOL/L Anion Gap 15 H 5-14 MMOL/L Blood Urea Nitrogen 8 7-18 MG/DL Creatinine 0.67 0.60-1.30 MG/DL Estimat Glomerular Filtration Rate > 60 BUN/Creatinine Ratio 12 Glucose Level 89 70-105 MG/DL Calcium Level 8.6 8.5-10.1 MG/DL Corrected Calcium 8.3 L 8.5-10.1 MG/DL Magnesium Level 2.0 1.8-2.4 MG/DL Total Bilirubin 0.4 0.1-1.0 MG/DL Aspartate Amino Transf (AST/SGOT) 29 5-34 U/L Alanine Aminotransferase (ALT/SGPT) 31 0-55 U/L Alkaline Phosphatase 47 40-136 U/L Total Protein 7.1 6.4-8.2 GM/DL Albumin 4.4 3.2-4.5 GM/DL Amylase Level 63 25-125 U/L Lipase 21 8-78 U/L Salicylates Level < 0.3 L 5.0-20.0 MG/DL Acetaminophen Level < 10 L 10-30 UG/ML Serum Alcohol 304 *H <10 MG/DL My Orders Orders - DENNIS HASSAN MD Ua Culture If Indicated (02/17/19 06:48) Cbc With Automated Diff (02/17/19 06:48) Comprehensive Metabolic Panel (02/17/19 06:48) Alcohol (02/17/19 06:48) Drug Screen Stat (Urine) (02/17/19 06:48) Acetaminophen (02/17/19 06:48) Salicylate (02/17/19 06:48) Ekg Tracing (02/17/19 06:48) Ed Iv/Invasive Line Start (02/17/19 06:48) Monitor-Rhythm Ecg Trace Only (02/17/19 06:48) Ed Iv/Invasive Line Start (02/17/19 06:48) Magnesium (02/17/19 06:48) Lipase (02/17/19 06:48) Amylase (02/17/19 06:48) Seizure Precautions (02/17/19 06:51) Ns Iv 1000 Ml (Sodium Chloride 0.9%) (02/17/19 07:00) Thiamine Injection (Vitamin B-1 Injectio (02/17/19 07:00) Lorazepam Injection (Ativan Injection) (02/17/19 07:00) Ct Abdomen/Pelvis Wo (02/17/19 06:51) Pantoprazole Injection (Protonix Injecti (02/17/19 07:00) Folic Acid Tablet (Folic Acid Tablet) (02/17/19 07:30) Nursing Communication (Order) (02/17/19 07:27) Ns Iv 1000 Ml (Sodium Chloride 0.9%) (02/17/19 10:00) Lorazepam Injection (Ativan Injection) (02/17/19 10:30) Medications Given in ED Current Medications Medications Dose Ordered Sig/Kim Route Start Time Stop Time Status Last Admin Dose Admin Folic Acid 1 mg ONCE ONCE PO 02/17/19 07:30 02/17/19 07:31 DC 02/17/19 07:45 1 MG Lorazepam 0.5 mg ONCE ONCE IVP 02/17/19 07:00 02/17/19 07:03 DC 02/17/19 07:39 0.5 MG Pantoprazole 40 mg ONCE ONCE IV 02/17/19 07:00 02/17/19 07:03 DC 02/17/19 07:38 40 MG Thiamine HCl 100 mg ONCE ONCE IV 02/17/19 07:00 02/17/19 07:03 DC 02/17/19 07:38 100 MG Vital Signs/I&O 02/17/19 06:45 Temp 97.0 Pulse 96 Resp 12 B/P (MAP) 110/72 (85) Pulse Ox 96 O2 Delivery Room Air Blood Pressure Mean: 85 Progress Progress Note #1: Progress Note will try to obtain records from [facility] in [place] since he reports admit there abo tx a month ago for alcohol withdrawal. Check labs, ECG, UA and drug screen, alcohol level. Give IVF with Thiamine and folate supplementation. Seizure precautions since he reports having seizures with withdrawal. Will give a 0.5 mg dose of Ativan while waiting on labs and monitoring the patient. Since he is complaining of epigastric abdominal pain will also check lipase and give Pro tonix while checking CT scan of abdomen and pelvis. Since he reports Betadine allergy will do the scan without contrast. Progress Note #2: Time: 07:[address] scan does not show any mass on his kidneys and no signs of pancreatitis. he does have some periportal edema that might be from his drinking. He has no obstruction or blockage seen on imaging. Labs show elevated alcohol of 304. CBC stable and Chemistry appears stable as well without acute significant abnormality. Normal Lipase and amylase as well as LFTs. pt asking for something to eat, so given some snacks from what is available here. Will wait to see if any records come from [facility] and give some time to try and get urine from him. Progress Note #3: Time: 10:03 Progress Note Pt still had not urinated but he had remained stable and was sleeping in room. Vitals remain stable with heart rate in the 90s. D/w Dr. Rothman the hospitalist about admit to [facility] for alcohol intoxication and withdrawal. She accepted pt and will use the alcohol withdrawal order set. Progress Note #4: Time: 10:24 Progress Note Pt was able to urinate and provide sample for testing. This was sent to lab. He reported some more shaking and had some mild tremor so an additional 0.5 mg of Ativan was ordered to help with his transport to [place]. Fax received from [facility] Records reporting that he had no visits or records within the last year to their system Progress Note #5: Time: 10:46 Progress Note pt had an outburst after talking with registration about insurance and cost. He said he was a and has PTSD. he said the Ativan was not helping him and neither does xanax. The only thing that helps is Valium. I advised him that I did not have that available here but I will let them know in [place] that he felt that was what he needed to treat his alcohol withdrawal and PTSD. He now states he drinks because if he doesn't he sees all the people that have in combat around him. He reports now that he is a [place] and I asked if he wanted to be transferred to the [place] system instead and he declined stating he would rather go to [place] since that was already arranged and not start the process all over again. With speaking to him in a calm voice he was able to be redirected and calmed back down. I updated Dr. Rothman so that she is aware Initial ECG Impression Date: Feb 17, 2019 Initial ECG Impression Time: 07:22 Initial ECG Rate: 89 Initial ECG Rhythm: Normal Sinus Initial ECG Comparisson: No Previous ECG Available Comment Normal sinus rhythm with a heart rate of 89 bpm. MN interval 547 ms. QT interval 372 ms with a QT corrected interval of 453 ms. There is no acute ST elevation. There is no prior tracing for comparison. There is borderline left axis deviation. Diagnostic Imaging Diagonstic Imaging: CT Plain Films/CT/US/NM/MRI: abdomen, pelvis Comments NAME: [facility] REC#: [id number] PT STATUS: REG ER : 1965 PHYSICIAN: DENNIS HASSAN MD ADMIT DATE: 02/17/19/ER FS Draft Date of Exam:02/17/19 CT ABDOMEN/PELVIS WO PROCEDURE: CT abdomen and pelvis without contrast. TECHNIQUE: Multiple contiguous axial images were obtained through the abdomen and pelvis without the use of intravenous contrast. Auto Exposure Controls were utilized during the CT exam to meet ALARA standards for radiation dose reduction. INDICATION: Abdominal pain. History of renal mass. COMPARISON: None available. FINDINGS: Evaluation of the abdominal viscera is mildly limited without contrast. Lower chest: The lung bases are clear. No pericardial or pleural effusion. Peritoneum: No free intraperitoneal air or fluid. Liver and biliary system: There is a cyst within the left hepatic lobe measuring approximately 2 x 2 cm. Mild periportal edema is present. The gallbladder is normal. No biliary duct dilation. Spleen and Pancreas: Spleen is normal. Unenhanced pancreas is grossly normal. Adrenals: Normal. tract: No renal or ureteral calculi. No obstructive uropathy. Urinary bladder is normally filled without wall thickening. Prostate is not enlarged. GI tract: Stomach is normally filled with fluid and air and there is no pathologic wall thickening. No bowel obstruction. No pericolonic inflammatory changes. Ventral paraumbilical hernia due to diastases of the rectus abdominis. The hernia sac has a wide neck contains loops of small bowel and peritoneal fat. No fluid to indicate strangulation and no obstruction. Vasculature and Lymph nodes: Normal caliber aorta. No abdominal or pelvic lymphadenopathy. Musculoskeletal: No concerning osseous lesion. IMPRESSION: 1. No urinary tract calculi or obstructive uropathy. 2. Paraumbilical midline hernia has features of prior repair. Hernia sac has a wide neck and contains loops of small bowel. However, there is no bowel obstruction or strangulation. 3. Periportal edema is likely due to aggressive hydration. Dictated on workstation # [id number] Dict: 02/17/19727 Trans: 02/17/19737 [id number] Interpreted by: BECCA HART MD Electronically signed by: Departure Communication (Admissions) Time/Spoke to Admitting Phy: 10:03 D/w Dr. Rothman for the hospitalist service since pt is unassigned for an admit. he is requesting assistance for alcohol withdrawal and detox, then he plans to go to rehab after that. Discussed with her that he reportedly was admitted to [facility] a month ago but we have not been able to get any records from their system showing he was admitted there. His imaging of abd/pelvis does not show renal mass he spoke of on arrival to ED. His alcohol level initially was 304 but has not been repeated since arrival. He has received 1 Liter NS and 100 mg Thiamine, 1 m g Folate. With his reported seizures with withdrawal will admit to Cardiac Stepdown unit on seizure precautions and use the alcohol withdrawal order set. If he provides urine before transfer an order is already placed to run a UA and UDS. 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 Patient Instructions: ALCOHOL AND SUBSTANCE ABUSE DENNIS HASSAN MD Feb 17, 2019 07:20
[2019-02-17 07:24] LABS: HEMATOCRIT 44 % (40-54); HEMOGLOBIN 14.7 G/DL (13.3-17.7); MEAN CORPUSCULAR HEMOGLOBIN 30 PG (25-34); MEAN CORPUSCULAR HGB CONC 33 G/DL (32-36); MEAN CORPUSCULAR VOLUME 92 FL (80-99); MEAN PLATELET VOLUME 8.7 FL (7.4-10.4); NEUTROPHILS % (AUTO) 67 % (42-75); PLATELET COUNT 242 10^3/uL (130-400); RED CELL DISTRIBUTION WIDTH 13.7 % (10.0-14.5); WHITE BLOOD COUNT 5.2 10^3/uL (4.3-11.0)
[2019-02-17 07:25] LABS: BASOPHILS % (AUTO) 1 % (0-10); EOSINOPHILS # (AUTO) 0.1 10^3/uL (0.0-0.3); EOSINOPHILS % (AUTO) 2 % (0-10); LYMPHOCYTES # (AUTO) 1.2 X 10^3 (1.0-4.0); LYMPHOCYTES % (AUTO) 24 % (12-44); MONOCYTES # (AUTO) 0.3 X 10^3 (0.0-1.0); MONOCYTES % (AUTO) 6 % (0-12); NEUTROPHILS # (AUTO) 3.5 X 10^3 (1.8-7.8)
[2019-02-17 07:27] LABS: BILIRUBIN,TOTAL 0.4 MG/DL (0.1-1.0); BUN/CREATININE RATIO 12; CALCIUM 8.6 MG/DL (8.5-10.1); CARBON DIOXIDE 24 MMOL/L (21-32); CHLORIDE 107 MMOL/L (98-107); CREATININE SERUM 0.67 MG/DL (0.60-1.30); GFR ESTIMATED > 60; GLUCOSE 89 MG/DL (70-105); POTASSIUM 3.8 MMOL/L (3.6-5.0); SODIUM 146 MMOL/L (135-145)
[2019-02-17 07:28] LABS: ACETAMINOPHEN < 10 UG/ML (10-30); ALANINE AMINOTRANSFERASE 31 U/L (0-55); ALBUMIN 4.4 GM/DL (3.2-4.5); ALKALINE PHOSPHATASE 47 U/L (40-136); SALICYLATE < 0.3 MG/DL (5.0-20.0); TOTAL PROTEIN 7.1 GM/DL (6.4-8.2)
[2019-02-17] MEDS ORDERED: FOLIC ACID 1 MG TAB PO ONE (07:30)
--- NOTE | 2019-02-17 07:38 | Diagnostic Imaging Report ---
PROCEDURE: CT abdomen and pelvis without contrast. TECHNIQUE: Multiple contiguous axial images were obtained through the abdomen and pelvis without the use of intravenous contrast. Auto Exposure Controls were utilized during the CT exam to meet ALARA standards for radiation dose reduction. INDICATION: Abdominal pain. History of renal mass. COMPARISON: None available. FINDINGS: Evaluation of the abdominal viscera is mildly limited without contrast. Lower chest: The lung bases are clear. No pericardial or pleural effusion. Peritoneum: No free intraperitoneal air or fluid. Liver and biliary system: There is a cyst within the left hepatic lobe measuring approximately 2 x 2 cm. Mild periportal edema is present. The gallbladder is normal. No biliary duct dilation. Spleen and Pancreas: Spleen is normal. Unenhanced pancreas is grossly normal. Adrenals: Normal. tract: No renal or ureteral calculi. No obstructive uropathy. Urinary bladder is normally filled without wall thickening. Prostate is not enlarged. GI tract: Stomach is normally filled with fluid and air and there is no pathologic wall thickening. No bowel obstruction. No pericolonic inflammatory changes. Ventral paraumbilical hernia due to diastases of the rectus abdominis. The hernia sac has a wide neck contains loops of small bowel and peritoneal fat. No fluid to indicate strangulation and no obstruction. Vasculature and Lymph nodes: Normal caliber aorta. No abdominal or pelvic lymphadenopathy. Musculoskeletal: No concerning osseous lesion. IMPRESSION: 1. No urinary tract calculi or obstructive uropathy. 2. Paraumbilical midline hernia has features of prior repair. Hernia sac has a wide neck and contains loops of small bowel. However, there is no bowel obstruction or strangulation. 3. Periportal edema is likely due to aggressive hydration. Dictated by: Dictated on workstation # [id number]
[2019-02-17 10:36] LABS: BILIRUBIN,URINE NEGATIVE (NEGATIVE); CLARITY,URINE CLEAR; COLOR,URINE DARK YELLOW; GLUCOSE, URINE (UA) NEGATIVE (NEGATIVE); KETONES,URINE NEGATIVE (NEGATIVE); LEUKOCYTE ESTERASE ,URINE NEGATIVE (NEGATIVE); NITRITE,URINE NEGATIVE (NEGATIVE); PROTEIN,URINE NEGATIVE (NEGATIVE); UROBILINOGEN,URINE 0.2 MG/DL (NORMAL)
[2019-02-17 10:37] LABS: BACTERIA,URINE NEGATIVE /HPF; RBC,URINE RARE /HPF; WBC,URINE RARE /HPF
[2019-02-17 10:41] LABS: AMPHETAMINE SCREEN, URINE NEGATIVE (NEGATIVE); BARBITURATE SCREEN URINE NEGATIVE (NEGATIVE); BENZODIAZEPINES SCREEN URINE NEGATIVE (NEGATIVE); CANNABINOID SCREEN, URINE NEGATIVE (NEGATIVE); COCAINE SCREEN URINE NEGATIVE (NEGATIVE); METHADONE STAT NEGATIVE (NEGATIVE); METHAMPHETAMINE SCREEN URINE S NEGATIVE (NEGATIVE); OPIATE SCREEN URINE NEGATIVE (NEGATIVE); OXYCODONE STAT NEGATIVE (NEGATIVE); PROPOXYPHENE STAT NEGATIVE (NEGATIVE); TRICYCLIC ANTIDEPRESSANTS SCRE NEGATIVE (NEGATIVE)
--- OUTSIDE RECORDS SUMMARY | 2019-02-17 11:52 | XMS REPORT | Continuity of Care Document ---
Author Organization Unknown Address Unknown Allergies Active Description Code Type Severity Reaction Onset Reported/Identified Relationship to Patient Clinical Status Yes NO NAME AVAILABLE 99666 DRUG N/A N/A Yes KETOROLAC TROMETHAMINE 91326 DRUG INGREDI High Sob 12/16/2016 12/16/2016 Yes POVIDONE IODINE 43100 DRUG INGREDI Low Rash 12/16/2016 12/16/2016 Yes [...] uncomplicated (HCC) NINA OPHELIA 12/18/2016 NINAOPHELIA V 089920 Abdominal Pain NINA OPHELIA 12/18/2016 OPHELIA WOOD V R10.9 Unspecified abdominal pain NINA OPHELIA 12/18/2016 OPHELIA WOOD V R31.9 Hematuria, unspecified NINA [place] 12/30/2016 ALHAFEZ, CHEKO V 890525 Facial Swelling ALHAFEZ, CHEKO 12/30/2016 ALHAFEZ, CHEKO [...] Procedures Code Description Performed By Performed On 2CO59IS EXTIRPATION OF MATTER FROM STOMACH, OPEN APPROACH 01/25/2017 [id number] INSPECTION OF UPPER INTESTINAL TRACT, ENDO 01/25/2017 [...] RED CELL DISTRIBUTION WIDTH 14.0 % 11.8-15.6 2630346 6.6 10E9/L 3.5-10.5 5829135 1.76 10E9/L 0.90-2.90 0519385 0.86 10E9/L 0.30-0.90 2351754 0.03 10E9/L 0.05-0.50 1395320 3.93 10E9/L 1.70-7.00 5473183 0.03 10E9/L 0.00-0.30 1096701 0 % LIPASE - 12/16/16 14:13 LIPASE [...] mg/dL 0.2 WBC UA 4-10 /HPF 0-3 1931386 Negative Negative CBC WITH AUTO DIFFERENTIAL - [...] RED CELL DISTRIBUTION WIDTH 14.1 % 11.8-15.6 0599173 4.5 10E9/L 3.5-10.5 4869917 1.08 10E9/L 0.90-2.90 3479492 0.34 10E9/L 0.30-0.90 0453587 0.17 10E9/L 0.05-0.50 9901119 2.89 10E9/L 1.70-7.00 7035952 0.01 10E9/L 0.00-0.30 0011874 0 % COMPREHENSIVE METABOLIC PANEL - 12/18/16 [...] EU 0.2 WBC UA 0-3 /HPF 0-3 [id number] Negative Negative DRUG SCREEN (8) MEDICAL - [...] 1.003-1.030 THC Negative Cutoff 50 ng/mL Negative [id number] Chain of custody not received BLOOD CULTURE - 12/25/16 10:10 1774020 No Growth after 5 days incubation BLOOD CULTURE - 12/25/16 10:15 [id number] No Growth after 5 days incubation LACTIC [...] Status Pt. Type Provider Facility Loc./Unit Complaint [id number] 12/25/2016 07:54:47 12/30/2016 12:00:00 DIS Inpatient CHEKO GRAY [address] [id number] 12/18/2016 13:06:06 12/18/2016 17:38:00 [id number]/16/2016 13:51:10 12/16/2016 16:03:00 DIS Emergency [facility] [id number] 12/31/2016 10:57:26 Document Registration [id number] 12/16/2016 14:37:18 Document Registration [id number] 01/25/2017 00:32:00 01/30/2017 20:45:00 DIS Inpatient Mike Grace M.D. [facility] [place] [id number] 01/23/2017 00:21:00 01/23/2017 02:53:00 DIS Emergency Mitch Donaldson [facility] F[place]O
[2019-02-17 12:00] VITALS: BP 114/72
[2019-02-17] MEDS ORDERED: 1/2 NS IV SOLUTION 1,000 ML IV PRN (12:12)
[2019-02-17] MEDS ORDERED: ONDANSETRON 4 MG/2 ML (SDV) Z0FRAN IV PRN (12:15)
[2019-02-17] MEDS ORDERED: ONDANSETRON 4 MG (ZOFRAN) ORAL DISSOLVE TAB SL PRN (12:15)
[2019-02-17] MEDS ORDERED: LORazepam INJ 2 MG/ML (ATIVAN) VIAL IM/IV PRN (12:15)
[2019-02-17] MEDS ORDERED: ANTACID SUSP 30 ML UDC (MYLANTA) PO PRN (12:15)
[2019-02-17] MEDS ORDERED: SENNA W/DOCUSATE (SENOKOT S) TABLET PO PRN (12:15)
[2019-02-17] MEDS ORDERED: LORazepam 1 MG (ATIVAN) TAB PO PRN (12:15)
[2019-02-17] MEDS ORDERED: D5 1/2 NS 1000 ML IV SOLUTION 1,000 ML IV PRN (12:15)
[2019-02-17] MEDS ORDERED: CATHETER FLUSH 10 ML SYR IV PRN (12:30)
[2019-02-17 13:00] VITALS: BP 134/84
[2019-02-17 13:00] LABS: INR 0.9 (0.8-1.4); PROTHROMBIN TIME PATIENT 12.9 SEC (12.2-14.7)
[2019-02-17 13:08] LABS: ALANINE AMINOTRANSFERASE 33 U/L (0-55); ALBUMIN 3.9 GM/DL (3.2-4.5); ALKALINE PHOSPHATASE 42 U/L (40-136); BILIRUBIN,TOTAL 0.3 MG/DL (0.1-1.0); BUN/CREATININE RATIO 8; CALCIUM 7.9 MG/DL (8.5-10.1); CARBON DIOXIDE 22 MMOL/L (21-32); CHLORIDE 112 MMOL/L (98-107); CREATININE SERUM 0.73 MG/DL (0.60-1.30); GFR ESTIMATED > 60; GLUCOSE 100 MG/DL (70-105); POTASSIUM 3.4 MMOL/L (3.6-5.0); SODIUM 145 MMOL/L (135-145); TOTAL PROTEIN 6.3 GM/DL (6.4-8.2)
[2019-02-17] MEDS ORDERED: CHLO25CA10 PO (13:14)
--- NOTE | 2019-02-17 13:21 | History & Physical-Hospitalist ---
History of Present Illness HPI/Chief Complaint Pt is a 53yoCM with a PMH of alcoholism, heart disease of unknown details, and CVA in 2009 who presented to the ER seeking assistance with alcohol withdrawal. He states he has been an alcoholic for 40 years and has tried to quit multiple times and has suffered DTs and seizures due to this and thus is requesting medical assistance. When I entered his room he was sleeping soundly and awoke only to physical stimuli. He then complained of diffuse abdominal pain and stated it was similar to previous kidney stones. He also complained of a headache. His last drink was at 215pm 02/16/19 and his alcohol level on arrival was 304. He states he drinks 1L to 1/2 gallon of Vodka a day. He has been sober for 5 years at one point in his adult life. Source: patient Exam Limitations: intoxication Date Seen 02/17/19 Time Seen by a Provider: 12:45 Attending Physician Prem Rothman MD PCP No,Local Physician Referring Physician Date of Admission Feb 17, 2019 at 10:33 am Home Medications & Allergies Home Medications Reviewed patient Home Medication Reconciliation performed by pharmacy medication reconciliations plant facilities technician and/or nursing. Patients Allergies have been reviewed. Allergies Allergies Coded Allergies ketorolac (Verified Allergy, Intermediate, Hives, 02/17/19) povidone-iodine (Verified Allergy, Intermediate, Hives, 02/17/19) soap (Verified Allergy, Intermediate, Hives, 02/17/19) Past Lbibqyg-Sjjyva-Zwmfty Hx Past Med/Social Hx: Reviewed Nursing Past Med/Soc Hx Patient Social History Alcohol Use: Regular Use Number of Drinks Today: 0 Alcohol Beverage of Choice: Vodka Recreational Drug Use: No Smoking Status: Unknown if Ever Smoked 2nd Hand Smoke Exposure: No Recent Foreign Travel: No Contact w/other who traveled: No Recent Hopitalizations: Yes ([facility], patient unable to remember when or for what) Recent Infectious Disease Expo: No Seasonal Allergies Seasonal Allergies: No Past Medical History Surgeries: Abdominal ("bowel blockage"), Pacemaker Gastrointestinal: Obstructive Bowel alcohol abuse Family History Reviewed Nursing Family Hx No Pertinent Family Hx Review of Systems Constitutional: no symptoms reported EENTM: no symptoms reported Respiratory: no symptoms reported Cardiovascular: no symptoms reported Gastrointestinal: abdominal pain Genitourinary: no symptoms reported Musculoskeletal: back pain Skin: no symptoms reported Psychiatric/Neurological: Headache Physical Exam Physical Exam Vital Signs Vital Signs - First Documented 02/17/19 06:45 Temp 97.0 Pulse 96 Resp 12 B/P (MAP) 110/72 (85) Pulse Ox 96 O2 Delivery Room Air Capillary Refill : Less Than 3 Seconds Height, Weight, BMI Height: 5'7.00" Weight: 165lbs. oz. 74.321307bo; BMI Method:Stated General Appearance: No Apparent Distress, Chronically ill, Other (disheveled) HEENT: Moist Mucous Membranes; No Scleral Icterus (L), No Scleral Icterus (R) Respiratory: Lungs Clear, No Accessory Muscle Use, No Respiratory Distress Cardiovascular: Regular Rate, Rhythm, No JVD, No Murmur Gastrointestinal: Normal Bowel Sounds, Non Tender, Soft Extremity: No Calf Tenderness, No Pedal Edema Neurologic/Psychiatric: Alert, Oriented x3 Skin: Warm/Dry, Tattoos/Piercings Results Results/Procedures Labs Laboratory Tests 02/17/19 07:00 02/17/19 12:32 Patient resulted labs reviewed. Imaging: Reviewed Imaging Report Assessment/Plan Admission Diagnosis Alcohol withdrawal Admission Status: Inpatient Order (span 2 midnights) Reason for Inpatient Admission: Needs close monitoring for DT, seizures Diagnosis/Problems Diagnosis/Problems (1) Acute alcoholic intoxication Status: Acute Assessment & Plan: Would like to quit drinking Admitted for management of withdrawal CIWA protocol in place executive secretary social welfare consulted appears to have filled Librium on 02/15 but UDS negative so likely did not take Qualifiers: Complication of substance-induced condition: uncomplicated Qualified Codes: F10.920 - Alcohol use, unspecified with intoxication, uncomplicated PREM ROTHMAN MD Feb 17, 2019 1:20 pm
--- NOTE | 2019-02-17 13:25 | NUR ---
SPOKE WITH THE PATIENT ABOUT HIS MEDICATIONS. HE IS VAGUE ON DETAILS. HE STATES HE USES [facility] WHEREVER HE IS AT. I CAN SEE ON THE EXT MED HX BGLESLIE DOMINGUEZ JEFFY RECENTLY DISPENSED A MEDICATION: 02-15-19 CHLORDIAZEPOXIDE 25MG 2 QID #40 (THIS WAS PICKED UP HOWEVER PHARMACY REPORTS IT WAS TO THE SHELTER, I DID NOT INCLUDE IT ON THE MED REC SINCE THE PATIENT WOULD NOT HAVE BEEN SENT HOME WITH THAT SUPPLY.)
--- NOTE | 2019-02-17 13:50 | NUR ---
Responded to pt request to see , pt appeared intoxicated, I assisted pt with his TV controls and offered encouragement.
[2019-02-17] MEDS: D5 1/2 NS W/KCL 20 MEQ/L 1,000 ML IV SCH ×2 (14:02→20:37)
[2019-02-17] MEDS: LORazepam INJ 2 MG/ML (ATIVAN) VIAL IV PRN ×2 (14:42→21:25)
[2019-02-17 16:00] VITALS: BP 128/90
--- NOTE | 2019-02-17 16:09 | NUR ---
MITCH GRANDA admitted to room CU3-1, with an admitting diagnosis of ETOH INTOXICATION , on 02/17/19 from [facility] via EMS, accompanied by EMS .MITCH GRANDA introduced to surroundings, call light, bed controls, phone, TV, temperature control, lights, meal times, smoking policy, visitor policy, side rail policy, bathrooms and showers. Patient Rights given to patient in the handbook.MITCH GRANDA verbalizes understanding that [facility] is not responsible for the loss or damage to any personal effects or valuables that are kept in the patients posession during their hospitalization. PT NOTED TO BE INTOXICATED, THIS RN HAS ASKED SEVERAL TIMES REGARDING A PERSON TO BE NOTIFIED OF IN CASE OF EMERGENCY PT CONTINUES TO STATE " I DON'T WANT ONE", THIS RN HAS BED ALARM ON AND RAILS UP X 4, WITH TELESITTER PLACED. CALL LIGHT AND OTHER PERSONAL ITEMS WITHIN REACH, WILL CONTINUE TO MONITOR.
[2019-02-17 20:00] VITALS: BP 104/74
[2019-02-17] MEDS: MAGNESIUM OXIDE (MAG-OX)400 MG TAB PO SCH (20:21)
[2019-02-17 22:58] LABS: BILIRUBIN,URINE NEGATIVE (NEGATIVE); CLARITY,URINE SLIGHTLY CLOUDY; COLOR,URINE DARK YELLOW; GLUCOSE, URINE (UA) 1+ (NEGATIVE); KETONES,URINE 1+ (NEGATIVE); LEUKOCYTE ESTERASE ,URINE 1+ (NEGATIVE); NITRITE,URINE NEGATIVE (NEGATIVE); PH,URINE 5 (5-9); PROTEIN,URINE 2+ (NEGATIVE); UROBILINOGEN,URINE 1 MG/DL (NORMAL)
--- NOTE | 2019-02-17 23:00 | NUR ---
THIS RN CALLED DR. THOMAS IN REGARDS TO THE PT HAVING SMALL BLOOD CLOTS IN THE URINE AND RIGHT FLANK PAIN RATED AT AN 8 ON A NUMERIC SCALE. PT STATED HE HAS HAD BLOOD CLOTS IN HIS URINE FOR 'QUITE SOME TIME NOW'. PT REQUESTING PAIN MEDICATIONS. THIS RN INFORMED DR. THOMAS OF THE PREVIOUSLY STATED INFORMATION. ORDERS RECEIVED FOR TRAMADOL 50 MG PO QID PRN. ORDERS READ BACK AND VERIFIED.
[2019-02-17 23:04] LABS: BACTERIA,URINE TRACE /HPF; RBC,URINE 25-50 /HPF; WBC,URINE 0-2 /HPF
[2019-02-17 23:05] LABS: AMORPHOUS SEDIMENT,UR FEW AMOR URATES /LPF
[2019-02-17 23:10] VITALS: BP 141/102
[2019-02-18] VITALS: BP 152/89
[2019-02-18] MEDS: D5 1/2 NS W/KCL 20 MEQ/L 1,000 ML IV SCH (03:21)
[2019-02-18 04:00] VITALS: BP 122/83
[2019-02-18] MEDS: LORazepam INJ 2 MG/ML (ATIVAN) VIAL IV PRN (06:37)
[2019-02-18] MEDS ORDERED: MULTIVIT W/MINERALS TAB (THERAGRAN M) PO SCH (07:00)
[2019-02-18] MEDS ORDERED: THIAMINE 100 MG (VITAMIN B-1) TAB PO SCH (07:00)
[2019-02-18 08:00] VITALS: BP 156/114
[2019-02-18] MEDS: MAGNESIUM OXIDE (MAG-OX)400 MG TAB PO SCH (08:29)
[2019-02-18] MEDS ORDERED: FOLIC ACID 1 MG TAB PO SCH (09:00)
[2019-02-18] MEDS ORDERED: MAGNESIUM 1 GM/100 ML IVPB 100 ML IV SCH (09:15)
--- NOTE | 2019-02-18 09:29 | Progress Note-Hospitalist ---
Subjective HPI/CC On Admission Date Seen by Provider: Feb 18, 2019 Time Seen by Provider: 09:24 Pt is a 53yoCM with a PMH of alcoholism, heart disease of unknown details, and CVA in 2009 who presented to the ER seeking assistance with alcohol withdrawal. He states he has been an alcoholic for 40 years and has tried to quit multiple times and has suffered DTs and seizures due to this and thus is requesting medical assistance. When I entered his room he was sleeping soundly and awoke only to physical stimuli. He then complained of diffuse abdominal pain and stated it was similar to previous kidney stones. He also complained of a headache. His last drink was at 215pm 02/16/19 and his alcohol level on arrival was 304. He states he drinks 1L to 1/2 gallon of Vodka a day. He has been sober for 5 years at one point in his adult life. Subjective/Events-last exam Pt reports feeling symptoms of withdrawal. Complains of headache and shakiness. Also complains of left lower flank pain and passing blood in urine. Reports it feels similar to a kidney stone. Objective Exam Vital Signs Vital Signs Date Time Temp Pulse Resp B/P (MAP) Pulse Ox O2 Delivery O2 Flow Rate FiO2 02/18/19 08:57 Room Air 02/18/19 08:00 99 19 156/114 (128) 02/18/19 03:39 98.2 02/17/19 20:00 95 Capillary Refill : Less Than 3 Seconds General Appearance: No Apparent Distress, Chronically ill, Other (disheveled) Respiratory: Lungs Clear, No Accessory Muscle Use, No Respiratory Distress Cardiovascular: Regular Rate, Rhythm, No JVD, No Murmur Gastrointestinal: Normal Bowel Sounds, Non Tender, Soft; No Distended, No Guarding Extremity: No Calf Tenderness, No Pedal Edema Neurologic/Psychiatric: Alert, Oriented x3 Skin: Tattoos/Piercings Results/Procedures Lab Laboratory Tests 02/17/19 12:32 Patient resulted labs reviewed. Imaging: Reviewed Imaging Report Assessment/Plan Assessment and Plan Assess & Plan/Chief Complaint alcohol withdrawal Diagnosis/Problems Diagnosis/Problems (1) Acute alcoholic intoxication Status: Acute Assessment & Plan: CIWA protocol in place social services manager consulted appears to have filled Librium on 02/15 but UDS negative so likely did not take Continue ativan Given history will likely have significant withdrawal may need precedex and/or intubation should symptoms worsen acutely Qualifiers: Complication of substance-induced condition: uncomplicated Qualified Codes: F10.920 - Alcohol use, unspecified with intoxication, uncomplicated (2) Hematuria Assessment & Plan: history of kidney stones not visualized on CT Advised to monitor for hesitation, if worsening may need cath and irrigation If worsens will consult urology Qualifiers: Hematuria type: other microscopic Qualified Codes: R31.29 - Other microscopic hematuria (3) Hypokalemia Assessment & Plan: Replacing in fluids trend (4) Hypomagnesemia Assessment & Plan: replaced this am trend Clinical Quality Measures DVT/VTE Risk/Contraindication: Risk Factor Score Per Nursin RFS Level Per Nursing on Admit: 1=Low/No VTE PPX PREM MILLER MD Feb 18, 2019 9:28 am
--- NOTE | 2019-02-18 10:21 | NUR ---
0949 PT REQUESTING TO SIGN OUT AMA, PT VERBALIZES UNDERSTANDING OF RISK LEAVING AND BENEFITS OF STAYING. PT ADAMANT THAT HE NEEDS TO LEAVE. 1000 IV D/C AND AMA PAPERS SIGNED. DR MILLER NOTIFIED.
[2019-02-19] MEDS ORDERED: THIAMINE INJECTION 100 MG, FOLIC ACID INJECTION 1 MG, VITAMIN MULTI INJECTION 10 ML, MA... IV SCH ×5 (09:00)
== END 2019-02-18 10:15 | disposition left against medical advice (07) | DRG 894 ==
LOC: ER FS 06:32 → ICU 10:33
PROVIDERS: ADMIT Family Medicine; ATTEND Family Medicine
DX: F10.239 Alcohol dependence with withdrawal, unspecified (principal); Y90.8 Blood alcohol level of 240 mg/100 ml or more; R31.29 Other microscopic hematuria; J44.9 Chronic obstructive pulmonary disease, unspecified; F43.10 Post-traumatic stress disorder, unspecified; E87.6 Hypokalemia; E83.42 Hypomagnesemia; Z95.0 Presence of cardiac pacemaker; Z86.73 Personal history of transient ischemic attack (TIA), and cerebral infarction without residual deficits
CPT/HCPCS: 36415; 74176; 80053; 80306; 80320; 80329; 81000; 82150; 82962; 83690; 83735; 85025; 85610; 85730; 86703; 93041; 96361; 96374; 96375; 96376

== ENCOUNTER 2019-02-19 20:53 | Emergency (ER) | payer SELFPAY ==
[~2019-02-19] VITALS: Ht 170.2 cm; Wt 77.1 kg
[~2019-02-19 20:53] MED LIST: CHLO25CA10 PO
--- OUTSIDE RECORDS SUMMARY | 2019-02-19 20:58 | XMS REPORT | Continuity of Care Document ---
Author Organization Unknown Address Unknown Allergies Active Description Code Type Severity Reaction Onset Reported/Identified Relationship to Patient Clinical Status Yes NO NAME AVAILABLE 07061 DRUG N/A N/A Yes KETOROLAC TROMETHAMINE 37268 DRUG INGREDI High Sob 12/16/2016 12/16/2016 Yes POVIDONE IODINE 03726 DRUG INGREDI Low Rash 12/16/2016 12/16/2016 Yes [...] uncomplicated (HCC) NINA OPHELIA 12/18/2016 NINAOPHELIA V 613663 Abdominal Pain NINA OPHELIA 12/18/2016 OPHELIA WOOD V R10.9 Unspecified abdominal pain NINA OPHELIA 12/18/2016 OPHELIA WOOD V R31.9 Hematuria, unspecified NINA BUMPASS 12/30/2016 ALHAFEZ, CHEKO V 877170 Facial Swelling ALHAFEZ, CHEKO 12/30/2016 ALHAFEZ, CHEKO [...] Lopez F41.9 ANXIETY DISORDER, UNSPECIFIED 01/27/2017 Lesly Cbourn., Mike Miranda W T18.2XXA FOREIGN BODY IN [...] Procedures Code Description Performed By Performed On [id number] EXTIRPATION OF MATTER FROM STOMACH, OPEN APPROACH 01/25/2017 [id number] INSPECTION OF UPPER INTESTINAL TRACT, ENDO 01/25/2017 [...] RED CELL DISTRIBUTION WIDTH 14.0 % 11.8-15.6 [id number] 6.6 10E9/L 3.5-10.5 8179716 1.76 10E9/L 0.90-2.90 4036903 0.86 10E9/L 0.30-0.90 3383235 0.03 10E9/L 0.05-0.50 5687961 3.93 10E9/L 1.70-7.00 5401991 0.03 10E9/L 0.00-0.30 8670367 0 % LIPASE - 12/16/16 14:13 LIPASE [...] mg/dL 0.2 WBC UA 4-10 /HPF 0-3 4358972 Negative Negative CBC WITH AUTO DIFFERENTIAL - [...] RED CELL DISTRIBUTION WIDTH 14.1 % 11.8-15.6 5704386 4.5 10E9/L 3.5-10.5 3019158 1.08 10E9/L 0.90-2.90 6057998 0.34 10E9/L 0.30-0.90 6403779 0.17 10E9/L 0.05-0.50 3904244 2.89 10E9/L 1.70-7.00 8046154 0.01 10E9/L 0.00-0.30 5493462 0 % COMPREHENSIVE METABOLIC PANEL - 12/18/16 [...] EU 0.2 WBC UA 0-3 /HPF 0-3 0693011 Negative Negative DRUG SCREEN (8) MEDICAL - [...] 1.003-1.030 THC Negative Cutoff 50 ng/mL Negative [id number] Chain of custody not received BLOOD CULTURE - 12/25/16 10:10 [id number] No Growth after 5 days incubation BLOOD CULTURE - 12/25/16 10:15 [id number] No Growth after 5 days incubation LACTIC [...] Status Pt. Type Provider Facility Loc./Unit Complaint [id number] 12/25/2016 07:54:47 12/30/2016 12:00:00 DIS Inpatient CHEKO GRAY [address] [id number] 12/18/2016 13:06:06 12/18/2016 17:38:00 [id number]16[facility]2016 13:51:10 12/16/2016 16:03:00 DIS Emergency [facility] [id number] 12/31/2016 10:57:26 Document Registration [id number] 12/16/2016 14:37:18 Document Registration [id number] 01/25/2017 00:32:00 01/30/2017 20:45:00 DIS Inpatient Mike Grace M.D. [facility] HenriettaS [id number] 01/23/2017 00:21:00 01/23/2017 02:53:00 DIS Emergency Mitch Donaldson [facility] FERNANDO
--- NOTE | 2019-02-19 21:24 | ED Psychosocial ---
General Stated Complaint: HEALTH EVAL Source: patient History of Present Illness Date Seen by Provider: Feb 19, 2019 Time Seen by Provider: 21:00 Initial Comments Patient is a 53-year-old male presenting to the emergency department stating that he wanted to get help chronic drinking. He reports again that he has PTSD was wanting help because his "mind hurts". He had been admitted to the hospital and [facility] for alcohol intoxication and to get help with withdrawal on Friday, February 17. He had left AGAINST MEDICAL ADVICE from there from reviewing the electronic medical record. He has continued to drink despite expressing his desire to quit drinking. He has come back to the emergency department now stating that he wanted to get help to quit drinking again. He also has a bus ticket to get to [place] and was wanting to trying also give there. Allergies and Home Medications Allergies Coded Allergies: ketorolac (Verified Allergy, Intermediate, Hives, 02/17/19) povidone-iodine (Verified Allergy, Intermediate, Hives, 02/17/19) soap (Verified Allergy, Intermediate, Hives, 02/17/19) Home Medications No Active Prescriptions or Reported Meds Patient Home Medication List Home Medication List Reviewed: Yes Review of Systems Constitutional: No chills, No fever EENTM: no symptoms reported Respiratory: no symptoms reported Cardiovascular: no symptoms reported Gastrointestinal: no symptoms reported Genitourinary: no symptoms reported Musculoskeletal: no symptoms reported Skin: no symptoms reported Psychiatric/Neurological: Anxiety, Other (alcohol intoxication) Past Mhqzxvm-Figfci-Mfhjec Hx Past Med/Social Hx: Reviewed Nursing Past Med/Soc Hx Patient Social History Alcohol Beverage of Choice: Vodka 2nd Hand Smoke Exposure: No Recent Foreign Travel: No Contact w/Someone Who Travel: No Recent Hopitalizations: Yes ([facility], patient unable to remember when or for what) Seasonal Allergies Seasonal Allergies: No Past Medical History Surgeries: Yes Abdominal, Pacemaker Respiratory: Yes COPD Cardiac: Yes (pacemaker per pt) Genitourinary: Yes (claims to have mass on his kidney) Obstructive Bowel Musculoskeletal: No Endocrine: No HEENT: No Cancer: No Psychosocial: Yes (alcoholism) Integumentary: No Family Medical History No Pertinent Family Hx Physical Exam Vital Signs - First Documented 02/19/19 21:27 Temp 96.4 Pulse 104 Resp 16 B/P (MAP) 91/62 (72) Pulse Ox 98 O2 Delivery Room Air Capillary Refill : Height, Weight, BMI Height: 5'7.00" Weight: 165lbs. 6.0oz. 75.806486co; 25.8 BMI Method:Stated General Appearance: mild distress HEENT: PERRL/EOMI, pharynx normal, other (poor dentition) Neck: full range of motion, supple Respiratory: chest non-tender, lungs clear Cardiovascular: normal peripheral pulses, regular rate, rhythm Gastrointestinal: non tender, soft, no pulsatile mass Extremities: normal range of motion, non-tender, no pedal edema, no calf tenderness, normal capillary refill Neurologic/Psychiatric: alert, oriented x 3 Appearance/Memory: disheveled Behavior/Eye Contact: uncooperative Skin: normal color, warm/dry Progress/Results/Core Measures Results/Orders Lab Results Laboratory Tests Test 02/19/19 21:20 Range/Units White Blood Count 4.6 4.3-11.0 10^3/uL Red Blood Count 4.82 4.35-5.85 10^6/uL Hemoglobin 14.9 13.3-17.7 G/DL Hematocrit 44 40-54 % Mean Corpuscular Volume 91 80-99 FL Mean Corpuscular Hemoglobin 31 25-34 PG Mean Corpuscular Hemoglobin Concent 34 32-36 G/DL Red Cell Distribution Width 13.8 10.0-14.5 % Platelet Count 255 130-400 10^3/uL Mean Platelet Volume 8.9 7.4-10.4 FL Neutrophils (%) (Auto) 59 42-75 % Lymphocytes (%) (Auto) 29 12-44 % Monocytes (%) (Auto) 7 0-12 % Eosinophils (%) (Auto) 4 0-10 % Basophils (%) (Auto) 1 0-10 % Neutrophils # (Auto) 2.7 1.8-7.8 X 10^3 Lymphocytes # (Auto) 1.3 1.0-4.0 X 10^3 Monocytes # (Auto) 0.3 0.0-1.0 X 10^3 Eosinophils # (Auto) 0.2 0.0-0.3 10^3/uL Basophils # (Auto) 0.1 0.0-0.1 10^3/uL Sodium Level 145 135-145 MMOL/L Potassium Level 4.1 3.6-5.0 MMOL/L Chloride Level 106 98-107 MMOL/L Carbon Dioxide Level 23 21-32 MMOL/L Anion Gap 16 H 5-14 MMOL/L Blood Urea Nitrogen 8 7-18 MG/DL Creatinine 0.69 0.60-1.30 MG/DL Estimat Glomerular Filtration Rate > 60 BUN/Creatinine Ratio 12 Glucose Level 100 70-105 MG/DL Calcium Level 8.6 8.5-10.1 MG/DL Corrected Calcium 8.4 L 8.5-10.1 MG/DL Total Bilirubin 0.2 0.1-1.0 MG/DL Aspartate Amino Transf (AST/SGOT) 48 H 5-34 U/L Alanine Aminotransferase (ALT/SGPT) 39 0-55 U/L Alkaline Phosphatase 59 40-136 U/L Total Protein 7.3 6.4-8.2 GM/DL Albumin 4.3 3.2-4.5 GM/DL Salicylates Level < 0.3 L 5.0-20.0 MG/DL Acetaminophen Level < 10 L 10-30 UG/ML Serum Alcohol 300 H <10 MG/DL My Orders Orders - DENNIS HASSAN MD Ua Culture If Indicated (02/19/19 21:27) Cbc With Automated Diff (02/19/19 21:27) Comprehensive Metabolic Panel (02/19/19 21:27) Alcohol (02/19/19 21:27) Drug Screen Stat (Urine) (02/19/19 21:27) Acetaminophen (02/19/19 21:27) Salicylate (02/19/19 21:27) Ekg Tracing (02/19/19 21:27) Bh Status Checks/Observation Q15M (02/19/19 21:27) Haloperidol Injection (Haldol Injectio (02/19/19 21:27) Lorazepam Injection (Ativan Injection) (02/19/19 21:27) Vital Signs/I&O 02/19/19 02/19/19 21:27 21:40 Temp 96.4 96.4 Pulse 104 104 Resp 16 16 B/P (MAP) 91/62 (72) 91/62 (72) Pulse Ox 98 98 O2 Delivery Room Air Progress Progress Note : Progress Note He was initially saying that he wanted help with his drinking again. I advised him we would have to start over like we did the other day and he was willing to do that but then became agitated and the police had to come to speak with him. then he decided he did not want to continue with the tests and wanted to sign out AMA to go with the police. He has a bus ticket to get to [place] in the morning and plans to go there. Will have him leave AMA and keep with that plan. Advised if he has further concerns to seek medical care. He does admit to drinking Vodka again today but states his last drink was earlier today. Departure Impression Primary Impression: Left against medical advice Additional Impression: Alcohol intoxication Qualified Codes: F10.920 - Alcohol use, unspecified with intoxication, uncomplicated Disposition: 07 AGAINST MEDICAL ADVICE Condition: Against Medical Advice Departure-Patient Inst. Referrals: NO,LOCAL PHYSICIAN (PCP/Family) Primary Care Physician Scripts No Active Prescriptions or Reported Meds DENNIS HASSAN MD Feb 19, 2019 21:24
[2019-02-19] MEDS ORDERED: LORazepam INJ 2 MG/ML (ATIVAN) VIAL IM STA (21:27)
[2019-02-19] MEDS ORDERED: HALOPERIDOL 5 MG/ML (HALDOL) AMP IM STA (21:27)
--- NOTE | 2019-02-19 21:33 | NUR ---
police here to talk with pt.
--- NOTE | 2019-02-19 21:36 | NUR ---
pt signed out ama to be placed in police custody until am, police will provide pt care at the [facility] and get pt to bus station in the am where pt has a bus ticket to go to [place] tomorrow.
[2019-02-19 21:40] VITALS: BP 91/62
[2019-02-19 21:41] LABS: BASOPHILS # (AUTO) 0.1 10^3/uL (0.0-0.1); BASOPHILS % (AUTO) 1 % (0-10); EOSINOPHILS # (AUTO) 0.2 10^3/uL (0.0-0.3); EOSINOPHILS % (AUTO) 4 % (0-10); HEMATOCRIT 44 % (40-54); HEMOGLOBIN 14.9 G/DL (13.3-17.7); LYMPHOCYTES # (AUTO) 1.3 X 10^3 (1.0-4.0); LYMPHOCYTES % (AUTO) 29 % (12-44); MEAN CORPUSCULAR HEMOGLOBIN 31 PG (25-34); MEAN CORPUSCULAR HGB CONC 34 G/DL (32-36); MEAN CORPUSCULAR VOLUME 91 FL (80-99); MEAN PLATELET VOLUME 8.9 FL (7.4-10.4); MONOCYTES # (AUTO) 0.3 X 10^3 (0.0-1.0); MONOCYTES % (AUTO) 7 % (0-12); NEUTROPHILS # (AUTO) 2.7 X 10^3 (1.8-7.8); NEUTROPHILS % (AUTO) 59 % (42-75); PLATELET COUNT 255 10^3/uL (130-400); RED CELL DISTRIBUTION WIDTH 13.8 % (10.0-14.5); WHITE BLOOD COUNT 4.6 10^3/uL (4.3-11.0)
[2019-02-19 21:54] LABS: ALKALINE PHOSPHATASE 59 U/L (40-136); BILIRUBIN,TOTAL 0.2 MG/DL (0.1-1.0); BUN/CREATININE RATIO 12; CALCIUM 8.6 MG/DL (8.5-10.1); CARBON DIOXIDE 23 MMOL/L (21-32); CHLORIDE 106 MMOL/L (98-107); CREATININE SERUM 0.69 MG/DL (0.60-1.30); GFR ESTIMATED > 60; GLUCOSE 100 MG/DL (70-105); POTASSIUM 4.1 MMOL/L (3.6-5.0); SODIUM 145 MMOL/L (135-145)
[2019-02-19 21:55] LABS: ACETAMINOPHEN < 10 UG/ML (10-30); ALANINE AMINOTRANSFERASE 39 U/L (0-55); ALBUMIN 4.3 GM/DL (3.2-4.5); SALICYLATE < 0.3 MG/DL (5.0-20.0); TOTAL PROTEIN 7.3 GM/DL (6.4-8.2)
== END 2019-02-19 21:40 | disposition left against medical advice (07) ==
LOC: EDUNIT# 20:53 → ER FS 20:54
DX: F10.229 Alcohol dependence with intoxication, unspecified (principal); F43.10 Post-traumatic stress disorder, unspecified; J44.9 Chronic obstructive pulmonary disease, unspecified; Z95.0 Presence of cardiac pacemaker; Z88.6 Allergy status to analgesic agent; Z91.041 Radiographic dye allergy status; Y90.8 Blood alcohol level of 240 mg/100 ml or more
CPT/HCPCS: 36415; 80053; 80320; 80329; 85025